=== PATIENT | female | born 1995 | race African-American/Black ===

== ENCOUNTER 2018-07-19 00:10 | Inpatient (IN) ==
[2018-07-19 01:18] LABS: Appearance Urine Clear (Clear); Bilirubin Urine Negative (Negative); Blood Urine Negative (Negative); Color Urine Yellow; Glucose Urine UA Negative (Negative); Ketones Urine Trace (Negative); Leukocyte Esterase Urine Negative (Negative); Nitrite Urine Negative (Negative); Protein Urine Negative (Negative); Specific Gravity Urine 1.034 (1.000-1.030); Urobilinogen Urine Negative (Negative)
[2018-07-19 01:20] LABS: Pregnancy Test, Urine Negative (Negative)
[2018-07-19 01:36] LABS: Basophils # (auto) 0.02 K/uL (0-0.2); Basophils % (auto) 0.3 %; Eosinophils # (auto) 0.08 K/uL (0-0.5); Eosinophils % (auto) 1.4 %; Hematocrit (blood only) 37.6 % (37-47); Hemoglobin 12.2 g/dL (12.0-16.0); Immature Granulocytes # (auto) 0.01 K/uL (0.00-0.02); Immature Granulocytes % (auto) 0.2 %; Lymphocytes # (auto) 1.67 K/uL (1.2-3.4); Lymphocytes % (auto) 29.1 %; Mean Corpuscular Hgb Conc 32.4 g/dL (32-36); Mean Corpuscular Volume 85.8 fL (80-100); Mean Platelet Volume 10.6 fL (7.4-10.4); Monocytes # (auto) 0.74 K/uL (0.11-0.59); Monocytes % (auto) 12.9 %; Neutrophils # (auto) 3.22 K/uL (1.4-6.5); Neutrophils % (auto) 56.1 %; Platelet Count 309 K/uL (130-400); RDW Coefficient of Variation 12.8 % (11.5-14.5); RDW Standard Deviation 40.6 fL (36.4-46.3); Red Blood Count 4.38 M/uL (4.2-5.4); White Blood Count 5.74 K/uL (4.8-10.8)
[2018-07-19 01:37] LABS: Amphetamines+Metham, Urine Neg (Neg); Barbiturates, Urine Neg (Neg); Benzodiazepine, Urine Neg (Neg); Cocaine, Urine Neg (Neg); MDMA (Ecstacy), Urine Neg (Neg); Methadone, Urine Neg (Neg); Opiate, Urine Neg (Neg); Phencyclidine, Urine Neg (Neg)
[2018-07-19 01:54] LABS: Albumin Level 3.8 gm/dl (3.4-5.0); BUN Creatinine Ratio 20.2 (10-20); Calcium 8.8 mg/dl (8.5-10.1); Creatinine Clr Calc Pharmacy 129.1 ml/min; Est GFR (African American) 119.4; Potassium 3.8 mmol/L (3.5-5.1)
[2018-07-19 02:05] LABS: Bilirubin,Total 0.7 mg/dl (0.2-1); Globulin 3.9 gm/dl (2.5-4.0); Total Protein 7.7 gm/dl (6.4-8.2)
[2018-07-19 02:11] LABS: Acetaminophen < 2 ug/ml (10-30); Salicylate < 1.7 mg/dl (2.8-20)
[2018-07-19] MEDS ORDERED: ALUMINUM/MAGNESIUM SUSP 30 ML UDC PO PRN (05:10)
[2018-07-19] MEDS ORDERED: ACETAMINOPHEN 325 MG TAB PO PRN (05:10)
[2018-07-19] MEDS ORDERED: BISMUTH SUBSALICYLATE PER ML OMNICELL CHARGE PO PRN (05:10)
[2018-07-19] MEDS ORDERED: SODIUM CHLORIDE 0.65% NA SOLN 45 ML (OCEAN) PRN (05:10)
[2018-07-19] MEDS ORDERED: MAGNESIUM HYDROXIDE SUSP 30 ML UDC PO PRN (05:10)
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
[2018-07-19] MEDS: risperiDONE ODT 0.5 MG SOLTAB PO SCH ×2 (11:10→22:55)
--- NOTE | 2018-07-20 09:38 | Psychiatric Progress Note ---
Date of Service July 20, 2018 Impression / Recommendations Impression Agreed to take the HS risperdal and slept better. Nursing reports that she was hyperactive last evening, giving everyone piles of books to read. She remains ambivalent about taking meds but agrees to take this AM's dose and see how she feels. Will have social work contact mother as per her request. Will continue meds and encourage that she give them a good trial. (1) Unspecified mood [affective] disorder: 07/19 differential includes bipolar disorder with mixed features, major depressive disorder, adjustment disorder - Recommend Risperdal 0.5 mg BID which the patient is currently refusing - Encourage the patient to avoid overstimulations - Encourage participation in group and individual counseling only as appropriate - Q 15 min checks for safety - Obtain supplemental information - Family meeting if indicated - Communicate with the university as needed - Recommend psychiatric follow up - Will continue to gather information toward the need for inpatient treatment, voluntary vs. involuntary - Safety planning 07/20 - Continue current meds and plan - FLP and FBS in AM for monitoring on atypicals. Inventory Assets Strengths: Level of family and friends Needs: healthy coping strategies Risk Factors Assessment Male: No : No Do You Have Access To A Gun?: No Health Problems: No Mental Health Diagnoses: No Substance Use Disorders: No Previous Attempt: No Previous Attempt; Didn't Tell Anyone: No Family History of Suicide: No Previous Psychiatric Hospitalization: No Protective Factors Assessment Confucianist Beliefs: Yes : No Responsible for Young Children: No Employed: No ([employer] for summer) Interval History Identifying Information 22 yo [employer] student, admitted voluntarily due to concerns for both SI and possible manic symptoms. Chief Complaint "I feel steady. ". Review of Systems Sleep Information Total Hours of Sleep: 5.5 Sleep Comments: pt on q-15 minute checks Meal Information Percent Meal Consumed - Breakfast: 30 Percent Meal Consumed - Lunch: 75 Percent Meal Consumed - Dinner: 80 Subjective Subjective Patient was seen & assessed and interval progress reviewed with Treatment Team. Nursing reports that despite saying she didn't want medications, she did take a dose of risperdal at HS last night. She says that she slept well, but doesn't think that it has had any effect to her energy level or pace of her thoughts. She says that she was rearranging the books last evening and "finding books for everyone". She has also found some books that she wants to read and has set a goal to read and complete one book, as she has never finished a book "in my life". She says that she has been trying to control the pace of her speech and her thoughts. She had friends bring her clothes saying "I hated those paper scrubs" and today is dressed in sparkly sandals coordinating with her pink and white outfit. She is still not convinced that the meds will help her and says she will try this AM's dose "but can I stop it at any time?". She has spoken with her mother by phone and wants someone to call her to answer questions. She denies any SI and continues to contend that her messages were taken out of context. Physical Exam Psychiatric Orientation: alert and cooperative Apperance: appropriately dressed and appropriately groomed Eye Contact: good eye contact Motor Behavior: steady gait and station and no abnormal motor movements Speech: + pressured speech (less so than yesterday) Affect: euthymic affect Mood: no depressed mood and no anxious mood "Steady" Thought Process: + circumstantial thought process Thought Content: reality based without delusions Suicidal Thoughts: denies suicidal thoughts Homicidal Thoughts: denies homicidal thoughts Hallucinations: no auditory hallucinations and no visual hallucinations Cognition: recent memory grossly intact, remote memory grossly intact, attention grossly intact and language grossly intact Estimated Intelligence: consistent with education level Insight: + impaired insight Judgement: + impaired judgement Vital Signs (Past 24 Hours) Last Vital Signs Temp 36.7 C 07/20/18 06:56 Pulse 106 H 07/20/18 06:57 Resp 18 07/20/18 06:56 BP 126/62 07/20/18 06:57 Pulse Ox 98 07/19/18 05:46 Results & Data Current Inpatient Medications Current Inpatient Medications: Current Inpatient Medications Acetaminophen (Tylenol) 650 mg PO Q4H PRN PRN Reason: Headache or Minor Fever Stop: 08/18/18 05:09 Al Hydrox/Mg Hydrox/Simethicone (Maalox) 30 ml PO Q4H PRN PRN Reason: GI Upset Stop: 08/18/18 05:09 Bismuth Subsalicylate (Kaopectate) 15 ml PO PRN PRN PRN Reason: Loose Stool Stop: 08/18/18 05:09 Hydroxyzine HCl (Vistaril) 25 mg PO Q4H PRN PRN Reason: Anxiety Stop: 08/18/18 05:09 Hydroxyzine HCl (Vistaril) 50 mg PO HSZ PRN PRN Reason: Insomnia Stop: 08/18/18 05:09 Magnesium Hydroxide (Milk Of Magnesia) 30 ml PO DAILY PRN PRN Reason: Diarrhea Stop: 08/18/18 05:09 Risperidone (Risperdal M) 0.5 mg PO BID TARIK Stop: 08/18/18 10:44 Last Admin: 07/19/18 22:55 Dose: 0.5 mg Documented by: Sodium Chloride ([place] Nasal) 1 - 2 sprays NA PRN PRN PRN Reason: Nasal Dryness/Congestion Stop: 08/18/18 05:09 Post Discharge Appointments Primary Care Physician Name Of Family Doctor: JOSE Therapist Name of Therapist: EMERSON, doesn't know the name Tent Assembler Name of Tent Assembler: None CPT Code CPT Code 45838
[2018-07-20] MEDS: risperiDONE ODT 0.5 MG SOLTAB PO SCH ×2 (10:55→21:06)
[2018-07-21 08:09] LABS: Glucose Fasting 85 mg/dl (70-99)
[2018-07-21 08:16] LABS: Chol HDL Ratio 3; Cholesterol 159 mg/dl (0-200); HDL Cholesterol 53 mg/dl; LDL Cholesterol Calculated 97 mg/dl; Triglycerides 44 mg/dl (0-150); VLDL Cholesterol 9 mg/dl
--- NOTE | 2018-07-21 08:48 | Psychiatric Progress Note ---
Date of Service July 21, 2018 Impression / Recommendations Impression Karol continues, and she agreed to a trial of risperidone, but has been refusing the morning dose, so we will consolidate to bedtime. She continues to refuse a family meeting, but parents have expressed concerns about her, as has the University. Social work is exploring outpatient options in [place]. (1) Bipolar 1 disorder: 07/19 differential includes bipolar disorder with mixed features, major depressive disorder, adjustment disorder - Recommend Risperdal 0.5 mg BID which the patient is currently refusing - Encourage the patient to avoid overstimulations - Encourage participation in group and individual counseling only as appropriate - Q 15 min checks for safety - Obtain supplemental information - Family meeting if indicated - Communicate with the university as needed - Recommend psychiatric follow up - Will continue to gather information toward the need for inpatient treatment, voluntary vs. involuntary - Safety planning 07/20 - Continue current meds and plan - FLP and FBS in AM for monitoring on atypicals. 07/21 - Meets criteria for karol, so diagnosis is bipolar type I. - Continue risperidone and consolidate to 1 mg nightly, she is refusing the morning dose due to sedation. - Reviewed results of labs with her: Normal fasting blood sugar and cholesterol levels. - She has limited insight into her symptoms and the concerns others have expressed with her behaviors, but will not likely meet criteria for an involuntary commitment, so will need to be discharged by the end of her 72-hour notice once we can arrange appropriate outpatient treatment. She states she will be in [place] for the next month, so will need follow-up with a therapist and psychiatrist, and states she is planning to be seen ats. 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 Present on Admission?: Yes Inventory Assets Strengths: Supportive family and friends Needs: Appropriate treatment, healthy coping strategies Risk Factors Assessment Male: No : No Do You Have Access To A Gun?: No Health Problems: No Mental Health Diagnoses: No Substance Use Disorders: No Previous Attempt: No Previous Attempt; Didn't Tell Anyone: No Family History of Suicide: No Previous Psychiatric Hospitalization: No Protective Factors Assessment L[employer]-Day Beliefs: Yes : No Responsible for Young Children: No Employed: No (Incentive for summer) Interval History Identifying Information 22 y/o [employer] student, admitted voluntarily due to concerns for both SI and manic symptoms. Chief Complaint "I'm voluntary, but I'm glad I came here". Review of Systems Sleep Information Total Hours of Sleep: 7 Sleep Comments: pt on q-15 minute checks Meal Information Percent Meal Consumed - Breakfast: 50 Percent Meal Consumed - Lunch: 75 Percent Meal Consumed - Dinner: 100 Subjective Subjective Patient was seen & assessed and interval progress reviewed with Nursing and social work. She continues to be manic, was disruptive in group, and continues to refuse a family meeting. She is refusing the morning dose of risperidone, but taking the bedtime dose. Last night she submitted a 72 hour notice requesting to withdraw from treatment. On my assessment, she states she is glad she came to the hospital "to get isolation, get my mind right." She says her family was angry at her and are "super upset," and eels they aren't supportive of her. She talked to her mother and sister, but not her father, and says her family wants her to be at the , but then says they don't want her to go. Reports continued high energy and difficulty with sleep, but denies racing thoughts, stating her thinking has slowed down and "I had so much to say, but I always talk fast." She says "everyone" noted she was talking fast and it was hard to follow her. 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 She has to meet with "detectives to get ready for court on Wednesday" for a PFA. She continues to decline a family meeting, saying "I feel like the meeting needs to be at home with them in [place]," "I don't want them to see me in here like this." She states that she is refusing the morning dose of risperidone because it makes her feel tired, and was agreeable to moving it to bedtime. Physical Exam Psychiatric Orientation: alert and oriented x 3 Apperance: appropriately dressed, appropriately groomed and appeared stated age Eye Contact: good eye contact Motor Behavior: steady gait and station and no abnormal motor movements Speech: + pressured speech Rapid rate, hyperverbal Expansive, elevated "Really good." Thought Process: + looseness of associations Thought Content: reality based without delusions Suicidal Thoughts: denies suicidal thoughts Homicidal Thoughts: denies homicidal thoughts Hallucinations: no auditory hallucinations and no visual hallucinations Cognition: recent memory grossly intact and language grossly intact Estimated Intelligence: consistent with education level Insight: + impaired insight Judgement: + impaired judgement Vital Signs (Past 24 Hours) Last Vital Signs Temp 36.7 C 07/21/18 07:01 Pulse 78 07/21/18 07:01 Resp 16 07/21/18 07:01 BP 118/76 07/21/18 07:01 Pulse Ox 98 07/19/18 05:46 Results & Data Laboratory Results Laboratory Results - last 24 hr 07/21/18 07:22 Fasting Glucose 85 Triglycerides 44 Cholesterol 159 LDL Cholesterol, Calc 97 VLDL Cholesterol, Calc 9 HDL Cholesterol 53 Cholesterol/HDL Ratio 3 Current Inpatient Medications Current Inpatient Medications: Current Inpatient Medications Acetaminophen (Tylenol) 650 mg PO Q4H PRN PRN Reason: Headache or Minor Fever Stop: 08/18/18 05:09 Al Hydrox/Mg Hydrox/Simethicone (Maalox) 30 ml PO Q4H PRN PRN Reason: GI Upset Stop: 08/18/18 05:09 Bismuth Subsalicylate (Kaopectate) 15 ml PO PRN PRN PRN Reason: Loose Stool Stop: 08/18/18 05:09 Hydroxyzine HCl (Vistaril) 25 mg PO Q4H PRN PRN Reason: Anxiety Stop: 08/18/18 05:09 Hydroxyzine HCl (Vistaril) 50 mg PO HSZ PRN PRN Reason: Insomnia Stop: 08/18/18 05:09 Magnesium Hydroxide (Milk Of Magnesia) 30 ml PO DAILY PRN PRN Reason: Diarrhea Stop: 08/18/18 05:09 Risperidone (Risperdal M) 0.5 mg PO BID TARIK Stop: 08/18/18 10:44 Last Admin: 07/20/18 21:06 Dose: 0.5 mg Documented by: Sodium Chloride ([place] Nasal) 1 - 2 sprays NA PRN PRN PRN Reason: Nasal Dryness/Congestion Stop: 08/18/18 05:09 Post Discharge Appointments Primary Care Physician Name Of Family Doctor: JOSE Therapist Name of Therapist: EMERSON, doesn't know the name Parts Cleaner Name of Parts Cleaner: None CPT Code CPT Code 26552
[2018-07-21] MEDS: risperiDONE ODT 0.5 MG SOLTAB PO SCH (09:07)
[2018-07-21] MEDS ORDERED: risperiDONE 1 MG TABLET PO SCH (22:00)
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
== END 2018-07-22 14:40 | disposition home or self-care (01) | DRG 885 ==
LOC: ED 00:10 → 3S 05:11